=== PATIENT | female | born 1975 | race Caucasian/White ===

== ENCOUNTER → 2021-02-28 08:11 | Outpatient (CLI) | payer OTHER, SELFPAY ==
[2021-03-01 02:20] LABS: SARS-CoV-2 RNA PCR Negative
== END ==
PROVIDERS: PCP Family Medicine; Visit Provider Family Medicine
DX: Z20.822 Contact with and (suspected) exposure to COVID-19 (principal)
CPT/HCPCS: C9803; U0003; U0005

== ENCOUNTER 2021-04-17 13:57 | Outpatient (CLI) | payer OTHER, SELFPAY | END 2021-04-17 13:58 | disposition home or self-care (01) | LOC: ANHAUDIO 13:58 | PROVIDERS: PCP Family Medicine; Visit Provider Otolaryngology | DX: H92.09 Otalgia, unspecified ear (principal); H91.91 Unspecified hearing loss, right ear | CPT/HCPCS: 92552; 92556; 92567 ==

== ENCOUNTER 2022-07-31 08:23 | Outpatient (CLI) | payer OTHER, SELFPAY ==
--- NOTE | 2022-08-10 17:53 | WPDHOMESLEEP ---
Sleep Study - Home Unattended Date of Study: 07/31/22 Ordering Provider: Laura Delaney PA-C Interpreting Provider: Emi Berry, DO Home Sleep Study Type: Watch PAT Height: 1.63 m Weight: 68.039 kg Body Mass Index: 25.7 Neck Circumference (inches): 13.25 [place]: 9 Reason for Sleep Study Snoring, nighttime awakenings Sleep History The patient is a 47-year-old female with anxiety that had a sleep study ordered by her primary care for evaluation of sleep apnea. The patient denies awakening from sleep short of breath. She frequently awakens at night with heartburn, belching or cough. She constantly snores and is frequently loud enough that others complain. She frequently has trouble sleeping when she has a cold. She denies waking up gasping for air throughout the night. She denies having breathing problems at night observed by herself or others. She occasionally sweats excessively at night. He denies having heart palpitations or irregular heartbeats during the night. She denies falling asleep during the day and while driving. She denies sleep paralysis, cataplexy and hypnagogic / hypnopompic hallucinations. He occasionally has trouble at school or work due to sleepiness. She denies feeling afraid of going to sleep. He denies having nightmares. She rarely remembers her dreams. She occasionally has thoughts racing through her mind. She occasionally feels sad or depressed. She occasionally has anxiety. She rarely has muscular tension. He rarely notices parts of her body jerk. She occasionally kicks during the night. She denies having crawling and aching feelings in her legs as well as leg pain during the night. She occasionally grinds her teeth during sleep but rarely awakens with morning jaw pain. She denies being bothered by pain during the day and denies being awakened by pain during the night. She denies waking up feeling stiff in the morning. She denies waking up with sore achy muscles. She denies waking up with pain in the neck, spine or other joints. She goes to bed at 10:00 p.m. on weekdays and at 11:00 p.m. on the weekends. It takes her 30 minutes to fall asleep. She wakes up 3-4 times throughout the night for unknown reasons. She is able to fall back asleep within a few minutes. She wakes up at 5:50 a.m. on weekdays and at 7:00 a.m. on the weekends. She typically gets 6-7 hours of sleep per night. She will stay in bed for 5-10 minutes after waking up in the morning. She currently lives with her and 2 children. She does not consume any caffeinated beverages within 2 hours of bedtime. She denies engaging in physical exercise before bedtime. She denies reading and watching television before falling asleep. She denies taking naps in the afternoon or the evening. She denies consuming caffeinated beverages throughout the day. She denies tobacco, alcohol and recreational drug use. [facility] Past Medical History Medical History Anxiety Anxiety Family history of diabetes mellitus Sinusitis, acute Surgical History Surgical History Status post proximal row carpectomy of wrist Family History Family History Father Diabetes mellitus Family history of gout Hypertension Grandparent Cerebrovascular accident Family history of emphysema Social History Social History Smoking status: Never smoker Second hand tobacco smoke exposure: No Alcohol intake: never Substance use: never Substance use type: does not use Additional occupation/education comments: teacher Gender identity (if verbalized by the patient): Female Spiritual care concerns: No Agree to blood products: Yes Medications Home Medications Medication Instructions Recorded Confirmed T
[2022-08-10 18:00] VITALS: BMI 25.7
--- NOTE | 2022-08-10 18:12 | WPDHOMESLEEP ---
Sleep Study - Home Unattended Date of Study: 07/31/22 Ordering Provider: Laura Delaney PA-C Interpreting Provider: Emi Berry, DO Home Sleep Study Type: Watch PAT Height: 1.63 m Weight: 68.039 kg Body Mass Index: 25.7 Neck Circumference (inches): 13.25 [place]: 9 Reason for Sleep Study Witnessed apneas, Teeth grinding Sleep History The patient is a 47 year old female that was recommended to have a sleep study by her dentist for teeth grinding. The patient denies awakening from sleep short of breath. She rarely awakens at night with heartburn, belching or cough. She constantly snores and frequently it is loud enough that others complain. She constantly has trouble sleeping when she has a cold. She denies waking up gasping for air throughout the night. She frequently has breathing problems at night observed by herself or others. She denies sweating excessively at night. She denies having heart palpitations or irregular heartbeats during the night. She occasionally falls asleep during the day. She rarely falls asleep while driving. She occasionally experiences loss of muscle tone when extremely emotional. She rarely has trouble at school or work due to sleepiness. She denies sleep paralysis and hypnagogic/ hypnopompic hallucinations. She denies feeling afraid of going to sleep. She rarely has nightmares and occasionally remembers her dreams. She occasionally has thoughts racing through her mind. She frequently feels sad, depressed and anxious. She frequently has muscular tension. She occasionally notices parts of her body jerk. She rarely kicks during the night. She denies having crawling and aching feelings in her legs as well as leg pain during the night. She frequently grinds her teeth during sleep and frequently awakens with morning jaw pain. She is occasionally bothered by pain during the day but never awakened by pain during the night. She occasionally wakes up feeling stiff in the morning. She occasionally wakes up with sore achy muscles. She frequently wakes up with pain in the neck, spine or other joints. She goes to bed between 10:00 p.m. and midnight on both weekdays and weekends. It takes her 20-30 minutes to fall asleep. She wakes up 2-4 times throughout the night for unknown reasons. She is able to fall back asleep within a few minutes. She wakes up between 7-8 a.m. on weekdays and between 8-9 a.m. on the weekends. She typically gets 5-8 hours of sleep per night. She will stay in bed for 5 minutes after waking up in the morning. He currently lives with her and 2 children. She will consume caffeinated beverages within 2 hours of bedtime. She does not engage in physical exercise before bedtime. She will read and watch television before falling asleep. She denies taking naps in the afternoon or the evening. She consumes caffeinated beverages throughout the day. She drinks 3-4 alcoholic beverages per week. She denies tobacco and recreational drug use. [facility] Past Medical History Medical History Anxiety Anxiety Family history of diabetes mellitus Sinusitis, acute Surgical History Surgical History Status post proximal row carpectomy of wrist Family History Family History Father Diabetes mellitus Family history of gout Hypertension Grandparent Cerebrovascular accident Family history of emphysema Social History Social History Smoking status: Never smoker Second hand tobacco smoke exposure: No Alcohol intake: never Substance use: never Substance use type: does not use Additional occupation/education comments: teacher Gender identity (if verbalized by the patient): Female Spiritual care concerns: No Agree to blood products: Yes
[2022-08-10 18:26] VITALS: BMI 25.7
--- NOTE | 2022-10-22 12:10 | SLEEP ---
new calls [id number]
== END 2022-08-04 11:37 | disposition home or self-care (01) ==
LOC: ANHCSM 08:29
PROVIDERS: PCP Physician Assistant Medical; Visit Provider Physician Assistant Medical
DX: G47.9 Sleep disorder, unspecified (principal)
CPT/HCPCS: 95800

== ENCOUNTER 2022-10-02 08:19 | Outpatient (CLI) | payer OTHER, SELFPAY ==
--- NOTE | 2022-10-29 17:47 | WPDSLEEPSTUD ---
Sleep Study Date of Study: 10/02/22 Ordering Provider: Laura Delaney PA-C Interpreting Physician: Kierra Segura MD Sleep Study Type: Polysomnogram Height: 1.63 m Weight: 68.039 kg Body Mass Index: 25.7 Neck Circumference (inches): 13 [place]: 9 Reason for Sleep Study Snoring, night time awakenings * 07/31/2022, WatchPat, AHI 1.4, minimum desaturation 91%, RDI 5.3. She returns for an in-lab split night study. Sleep History Zoila Da Silva is a 47 year old female who was initially considered for sleep testing due to her dentist noticing that she had teeth grinding.? The patient denies awakening from sleep short of breath.? She rarely awakens at night with heartburn, belching or cough.? She constantly snores and frequently it is loud enough that others complain.? She constantly has trouble sleeping when she has a cold.? She denies waking up gasping for air throughout the night.? She frequently has breathing problems at night observed by herself or others.? She denies sweating excessively at night.? She denies having heart palpitations or irregular heartbeats during the night.? She occasionally falls asleep during the day.? She rarely falls asleep while driving.? She occasionally experiences loss of muscle tone when extremely emotional.? She rarely has trouble at school or work due to sleepiness.? She denies sleep paralysis and hypnagogic/ hypnopompic hallucinations.? She denies feeling afraid of going to sleep.? She rarely has nightmares and occasionally remembers her dreams.? She occasionally has thoughts racing through her mind.??She frequently feels sad, depressed and anxious.??She frequently has muscular tension.? She occasionally notices parts of her body jerk.? She rarely kicks during the night.? She denies having crawling and aching feelings in her legs as well as leg pain during the night.? She frequently grinds her teeth during sleep and frequently awakens with morning jaw pain.? She is occasionally bothered by pain during the day but never awakened by pain during the night.? She occasionally wakes up feeling stiff in the morning.? She occasionally wakes up with sore achy muscles.? She frequently wakes up with pain in the neck, spine or other joints.? She goes to bed between 10:00 p.m. and midnight on both weekdays and weekends.? It takes her 20-30 minutes to fall asleep.? She wakes up 2-4 times throughout the night for unknown reasons.? She is able to fall back asleep within a few minutes.? She wakes up between 7-8 a.m. on weekdays and between 8-9 a.m. on the weekends.? She typically gets 5-8 hours of sleep per night.? She will stay in bed for 5 minutes after waking up in the morning.? He currently lives with her and 2 children.? She will consume caffeinated beverages within 2 hours of bedtime.? She does not engage in physical exercise before bedtime.? She will read and watch television before falling asleep.? She denies taking naps in the afternoon or the evening. She consumes caffeinated beverages throughout the day.? She drinks 3-4 alcoholic beverages per week.? She denies tobacco and recreational drug use. [facility] Past Medical History Medical History Anxiety Anxiety Family history of diabetes mellitus Sinusitis, acute Surgical History Surgical History Status post proximal row carpectomy of wrist Family History Family History Father Diabetes mellitus Family history of gout Hypertension Grandparent Cerebrovascular accident Family history of emphysema Social History Social History Smoking status: Never smoker Second hand tobacco smoke exposure: No Alcohol intake: never Substance use: never Substance use type: does not use Living arrangements: with family Occupation/Education: occupation
[2022-10-29 18:56] VITALS: BMI 25.7
== END 2022-10-03 06:11 | disposition home or self-care (01) ==
LOC: ANHCSM 08:20
PROVIDERS: PCP Physician Assistant Medical; Visit Provider Physician Assistant Medical
DX: R06.83 Snoring (principal); G47.9 Sleep disorder, unspecified
CPT/HCPCS: 95810